=== PATIENT | male | born 1955 | race Caucasian/White ===

== ENCOUNTER 2017-04-03 13:01 | Outpatient (CLI) | payer OTHER | END 2017-04-03 13:02 | disposition home or self-care (01) | LOC: SC 13:01 | PROVIDERS: ATTEND Internal Medicine Pulmonary Disease | DX: G47.33 Obstructive sleep apnea (adult) (pediatric) (principal) | CPT/HCPCS: 99203; 99212 ==

== ENCOUNTER 2017-10-16 14:43 | Outpatient (CLI) | payer OTHER | END 2017-10-16 14:44 | disposition home or self-care (01) | LOC: SC 14:43 | PROVIDERS: ATTEND Nurse Practitioner Family | DX: G47.33 Obstructive sleep apnea (adult) (pediatric) (principal) | CPT/HCPCS: 99212; 99214 ==

== ENCOUNTER 2018-04-28 09:07 | Outpatient (CLI) | payer OTHER | END 2018-04-28 09:08 | disposition home or self-care (01) | LOC: RT 09:07 | PROVIDERS: ATTEND Internal Medicine | DX: J44.9 Chronic obstructive pulmonary disease, unspecified (principal) ==

== ENCOUNTER 2018-08-30 17:27 | Outpatient (CLI) | payer OTHER ==
--- NOTE | 2018-08-31 11:40 | MRI Report ---
Reason: PAIN IN UNSPECIFIED SHOULDER Procedure Date: 08/30/2018 Accession Number: [id number] / [id number] Procedure: MRI - Shoulder RT W/O CPT Code: FULL RESULT: EXAM: RIGHT SHOULDER MRI WITHOUT CONTRAST EXAM DATE: 08/30/2018 05:53 PM. CLINICAL HISTORY: Right shoulder pain and limited range of motion after fall. COMPARISON: None. TECHNIQUE: Multiplanar, multisequence T1-weighted and fluid-sensitive sequences of the shoulder without contrast. Other: None. FINDINGS: Acromioclavicular Region: The acromion is type II. Moderate effusion and borderline widening at the acromioclavicular joint. The coracoacromial and coracoclavicular ligaments are intact. Small amount of fluid at the subacromial subdeltoid bursa. Glenohumeral Region: No subluxation. Small to moderate sized joint effusion. No loose bodies. Grade II chondromalacia of the humeral head and glenoid. Bone Marrow: Small marginal osteophytes at the humeral head. No acute fracture or bone lesions. Labrum: The labrum is unremarkable on this nonarthrographic study. Musculature/Rotator Cuff: There is ill-defined, approximately 0.6 cm AP by 1 cm proximal to distal, full-thickness, partial width tear at the anterior distal aspect of the supraspinatus tendon. There is an approximately 5 x 4 mm, ill-defined, low to moderate grade partial thickness articular surface tear at the posterior aspect of the supraspinatus tendon. There is infraspinatus tendinosis. Teres minor tendon is intact. High-grade partial-thickness articular surface tear of the subscapularis tendon. There is a small, approximately 3.7 x 1.7 x 2 cm lipoma within the posterior aspect of the deltoid muscle. Biceps Tendon: The long head biceps tendon is dislocated medially from the bicipital groove. There is tendinosis at the proximal aspect of the long head biceps tendon. Other: The subcutaneous tissues are unremarkable. IMPRESSION: 1. Ill-defined full-thickness, partial width tear at the anterior distal aspect of the supraspinatus tendon and ill-defined low to moderate grade partial thickness articular surface tear at the posterior aspect of the supraspinatus tendon. Infraspinatus tendinosis. High-grade partial thickness articular surface tear of the subscapularis tendon. 2. Simple lipoma within the posterior aspect of the deltoid muscle. 3. Medial dislocation of the long head biceps tendon which is due to the subscapularis tendon tear and tears of the coracohumeral and superior glenohumeral ligaments. There is also proximal long head biceps tendinosis. 4. Moderate-sized effusion and borderline widening at the acromioclavicular joint. 5. Small to moderate sized glenohumeral joint effusion. 6. Grade II chondromalacia at the glenohumeral joint. [facility] MUSCULOSKELETAL RADIOLOGY SECTION
== END 2018-08-30 17:28 | disposition home or self-care (01) ==
LOC: DI 17:27
PROVIDERS: ATTEND Physician Assistant
DX: S46.011A Strain of muscle(s) and tendon(s) of the rotator cuff of right shoulder, initial encounter (principal); D17.9 Benign lipomatous neoplasm, unspecified; M67.88 Other specified disorders of synovium and tendon, other site; M25.411 Effusion, right shoulder; M94.211 Chondromalacia, right shoulder

== ENCOUNTER 2018-10-19 13:14 | Outpatient (CLI) | payer OTHER ==
[2018-10-19 13:28] LABS: BASOPHILS # (AUTO) 0.1 10^3/uL (0.0-0.1); BASOPHILS % (AUTO) 0.8 %; EOSINOPHILS # (AUTO) 0.4 10^3/uL (0.0-0.7); EOSINOPHILS % (AUTO) 4.6 %; HGB - HEMOGLOBIN 13.5 g/dL (14.0-18.0); LYMPHOCYTES # (AUTO) 1.5 10^3/uL (1.5-3.5); MEAN CORPUSCULAR HEMOGLOBIN 32.6 pg (27.0-31.0); MEAN CORPUSCULAR HGB CONC 33.9 g/dL (32.0-36.0); MEAN CORPUSCULAR VOLUME 96.2 fL (80.0-94.0); MEAN PLATELET VOLUME 8.9 fL (7.4-11.4); MONOCYTES # (AUTO) 0.8 10^3/uL (0.0-1.0); MONOCYTES % (AUTO) 10.5 %; NEUTROPHILS # (AUTO) 4.9 10^3/uL (1.5-6.6); NEUTROPHILS % (AUTO) 64.1 %; PLT - PLATELET COUNT 161 10^3/uL (130-450); RED BLOOD COUNT 4.13 10^6/uL (4.70-6.10); WHITE BLOOD COUNT 7.7 x10^3/uL (4.8-10.8)
[2018-10-19 13:38] LABS: CALCIUM 9.6 mg/dL (8.5-10.3); CREATININE 1.1 mg/dL (0.6-1.2)
== END 2018-10-19 13:15 | disposition home or self-care (01) ==
LOC: LAB 13:14
PROVIDERS: ATTEND Registered Nurse
DX: Z01.812 Encounter for preprocedural laboratory examination (principal); E11.9 Type 2 diabetes mellitus without complications; Z86.79 Personal history of other diseases of the circulatory system
CPT/HCPCS: 36415; 80048; 85025

== ENCOUNTER 2018-10-26 05:58 | Day surgery (SDC) | payer OTHER ==
[2018-10-26] MEDS ORDERED: cefTRIAXone 2 GM VIAL ONE (06:12)
[2018-10-26] MEDS ORDERED: LACTATED RINGERS 1,000 ML IV ONE ×2 (06:40→08:47)
--- NOTE | 2018-10-26 06:54 | ANESTHESIA ---
Pre-Anesthesia VS, & Labs - Diagnosis R Rotator cuff tear, biceps tendon dislocation. - Procedure R shoulder scope with RCR, biceps tenodesis Vital Signs: Temp Pulse Resp BP Pulse Ox 36.1 C L 60 18 150/86 H 96 10/26/18 06:24 10/26/18 06:24 10/26/18 06:24 10/26/18 06:24 10/26/18 06:24 Height 5 ft 11 in Weight (kg) 117.93 kg - NPO >8 hours - Lab Results Current Lab Results: Laboratory Tests 10/26/18 06:34: POC Whole Bld Glucose 147 H Lab results reviewed: Yes Home Medications and Allergies Home Medications: Ambulatory Orders Aspirin [Adult Low Dose Aspirin EC] 81 mg PO DAILY 10/19/18 Losartan/Hydrochlorothiazide [Losartan-Hctz 100-25 mg Tab] 1 each PO DAILY 10/19/18 Melatonin 5 mg PO QPM 10/19/18 Naproxen 250 mg PO BID 10/19/18 Omeprazole 20 mg PO QPM 10/19/18 Topiramate [Topamax] 25 mg PO QPM 10/19/18 Atorvastatin Calcium 20 mg PO QPM 01/24/14 Carvedilol 25 mg PO BID 01/24/14 Glipizide [Glipizide ER] 10 mg PO BID 01/24/14 Nifedipine [Nifedipine ER] 30 mg PO DAILY 01/24/14 Prazosin HCl 5 mg PO QPM 01/24/14 Sertraline [Zoloft] 100 mg PO DAILY 01/24/14 metFORMIN [Glucophage] 1,000 mg PO BID 01/24/14 Aspirin [Adult Low Dose Aspirin EC] 81 mg PO DAILY 10/19/18 Losartan/Hydrochlorothiazide [Losartan-Hctz 100-25 mg Tab] 1 each PO DAILY 10/19/18 Melatonin 5 mg PO QPM 10/19/18 Naproxen 250 mg PO BID 10/19/18 Omeprazole 20 mg PO QPM 10/19/18 Topiramate [Topamax] 25 mg PO QPM 10/19/18 Allergies/Adverse Reactions: Allergies Allergy/AdvReac Type Severity Reaction Status Date / Time morphine Allergy Respiratory Verified 10/19/18 13:26 Anes History & Medical History - Anesthetic History Anesthesia Complications: reports: No previous complications Family history of Anesthesia Complications: Denies Family history of Malignant Hyperthermia: Denies - Medical History Cardiovascular: reports: Hypertension, Other Pulmonary: reports: Sleep apnea, CPAP use Gastrointestinal: reports: GERD Urinary: reports: None Musculoskeletal: reports: Chronic back pain Endocrine/Autoimmune: reports: Type 2 diabetes Skin: reports: None Smoking Status: Never smoker - Surgical History General: Colonoscopy Cardiothoracic: Coronary stent Orthopedic: Arthroscopic surgery Results - EKG Results EKG Comparison: Reviewed EKG (R BBB) Exam General: Alert, Oriented x3, Cooperative Dental: WNL Mouth Openin Fingerbreadth Neck Mobility: Normal Mallampati classification: I Thyromental Distance: 4-6 cm Respiratory: Lungs clear, Normal breath sounds, No respiratory distress Cardiovascular: Regular rate Neurological: Normal speech Mental/Cognitive Status: Alert/Oriented X3 Cognitive Status: Within normal limits Plan Anesthesia Type: General, Interscalene Block Regional Block: Per Surgeon's request for Post Op pain control Consent for Procedure(s) Verified and Reviewed: Yes Code Status: Attempt Resuscitation ASA classification: 3-Severe systemic disease Is this case an emergency?: No
[2018-10-26] MEDS ORDERED: BUPIVACAINE 0.25% PF 30 ML VIAL ONE (07:36)
[2018-10-26] MEDS ORDERED: BUPIVACAINE 0.5% PF 10 ML VIAL ONE (07:36)
[2018-10-26] MEDS ORDERED: EPINEPHrine 1 MG/ML AMP ONE ×2 (07:37→07:42)
[2018-10-26] MEDS ORDERED: ONDANSETRON 4 MG/2 ML VIAL IVP ONE (08:41)
[2018-10-26] MEDS ORDERED: PHENYLEPHRINE 50 MG/5 ML VIAL IV ONE (08:41)
[2018-10-26] MEDS ORDERED: ePHEDrine 50 MG/ML VIAL IVP ONE (08:41)
[2018-10-26] MEDS ORDERED: ACETAMINOPHEN 1,000 MG/100 ML 100 ML IV ONE (08:41)
[2018-10-26] MEDS ORDERED: PROPOFOL 200 MG/20 ML VIAL IVP ONE (08:41)
[2018-10-26] MEDS ORDERED: fentaNYL 100 MCG/2 ML VIAL IVP ONE (08:41)
[2018-10-26] MEDS ORDERED: ROCURONIUM 50 MG/5 ML VIAL IVP ONE (08:41)
[2018-10-26] MEDS ORDERED: MIDAZOLAM 2 MG/2 ML VIAL IVP ONE (08:41)
[2018-10-26] MEDS ORDERED: KETOROLAC 30 MG/ML VIAL IVP ONE (08:41)
[2018-10-26] MEDS ORDERED: LIDOCAINE-MPF 2% 5 ML VIAL IM ONE (08:41)
[2018-10-26] MEDS ORDERED: GLYCOPYRROLATE 1 MG/5 ML VIAL IVP ONE (08:41)
[2018-10-26] MEDS ORDERED: ONDANSETRON 4 MG/2 ML VIAL IVP PRN (16:00)
[2018-10-26] MEDS ORDERED: oxyCODONE 5 MG TABLET PO PRN (16:00)
--- NOTE | 2018-10-26 16:23 | OPERATIVE REPORT ---
Operative Report - Other Other Information/Narrative: Date of Surgery: 26 Oct 2018 Pre-Op Diagnosis: Right shoulder subscapularis tear, supraspinatus tear, biceps tendon dislocation Procedure: Right shoulder arthroscopy with subscapularis repair. Mini open supraspinatus repair. Open biceps tenodesis Postop Diagnosis: Same as above Primary Surgeon: Jovi Fowler Secondary Surgeon: Hank OCASIO Complications: None EBL: 100 IMPLANTS: Arthrex corkscrew x4. Arthrex swivel lock x3 Arthrex fiber tack x1 POSTOPERATIVE PLAN: 0-2 weeks-Sling at all times. Pendulum exercises 5 times per day. 2-6 weeks-Passive range of motion. Forward flexion to 120 degrees, abduction to 70 degrees but must be in an internally rotated position. External rotation to neutral to protect the subscapularis repair 6-12 weeks-Passive ROM. ER 30 degrees from weeks 6-8, 60 degrees from weeks 8- 10. FF unlimited. Abduction to 90 degrees weeks 6-8, 120 degrees weeks 8-10, 150 degrees weeks 10-12 12 weeks - unlimited active and passive ROM 16 weeks and beyond-begin strengthening. EXAMINATION UNDER ANESTHESIA: ROM: Forward flexion to 160, abduction to 150, external rotation to 60 Anterior load and shift: Stable Posterior load and shift: Stable Inferior sulcus: Stable ARTHROSCOPIC FINDINGS: Rotator interval: Tear seen Biceps tendon & SLAP: Dislocated. Small SLAP tear Subscapularis: Tear of the upper two thirds with retraction to the glenoid rim Rotator Cuff: Full-thickness tear of supraspinatus with retraction to the glenoid rim HAGL: Normal Labrum: Normal for age Glenoid Cartilage: Grade 1 and grade 2 changes Humeral Head Cartilage: Grade 1 changes INDICATION FOR SURGERY: 63-year-old male fell approximately 6 months ago and has had progressive significant weakness and pain of his right arm since that time. He has failed physical therapy and had full-thickness tears with biceps dislocation on his imaging. His examination was consistent with this.. Nonoperative managment failed to resolve symptoms. The risks, benefits, and alternatives were discussed. Risks included pain, bleeding, infection, damage to nearby structures, lack of symptom relief, implant complications, stiffness, need for further surgeries, DVT, PE, stroke, and even . The patient signed a written consent form. PROCEDURE IN DETAIL: The patient was met in the preoperative holding on the day of the procedure. Operative extremity was signed. Consent was verified. The patient desired to proceed. Regional anesthesia was obtained in the preoperative area. The patient was brought to the operating room and surrendered to anesthesia. Once general anesthesia was obtained the patient was placed in the beach chair position. A soft kidney pad was placed. The head was secured with the neck in a neutral position. The shoulder and arm were prepped and draped in the standard fashion. A surgical timeout was held to confirm the patient identity, procedure, procedure, laterality, allergies, images, and antibiotics. All were in agreement we proceeded. A standard diagnostic arthroscopy was performed utilizing posterior and anterosuperior portals. The anterior portal was created under direct visualization and localized with a spinal needle. The 7 mm cannula was placed anteriorly. The findings of the diagnostic arthroscopy can be found above. Identified a full thickness subscapularis tear with retraction. I placed an anterolateral portal site for working. I used the shaver and the radiofrequency ablation wand to clear the rotator interval and perform a 3 sided release of the subscapularis. I placed a single fiber tape into the tendon for retraction and countertraction during my release. Identified the backside of the coracoid and skeletonized it. He had adequate space and I did not perform a coricoplasty. I left the conjoined tendon attached. The comma tissue was identified and left intact for reference and to aid in the supraspinatus reduction. I then removed my instruments into the subacromial space and performed a subacromial decompression with a shaver and a wand. A full-thickness supraspinatus tear was identified and I used a shaver to debride the unstable portions of it and better understand the pathology. Once the tear was completely identified and released I then moved back down into the joint to fix the subscapularis. I prepared the bony bed using a rasp and the shaver and bur mode. I placed an inferior and more superior anchor just on the border of the articular margin. This was done percutaneously. I then passed sutures using a scorpion into the inferior portion of the subscap in a horizontal mattress fashion. I then placed 2 additional horizontal mattress sutures in the superior upper border area. During this process 1 of the sutures became unloaded. I then tied inferiorly in the inferior sutures unfortunately broke. The superior suture reduced the tendon nicely and fixed it well into the anatomic position I then added an additional 2 mm fiber tape in a horizontal mattress fashion. I then placed a lateral row incorporating all 4 sutures. This was found to fix the subscapularis very nicely and it was stable to rotation. I then went back into the subacromial space and reassessed the supraspinatus tear. I felt as I understood it very well. I then moved to the open portion of the case. I extended my anterolateral portal site to 5 cm down from the acromial edge. I then bluntly dissected through the deltoid and used a Derra retractor in the subacromial space. Additional bursa was excised. 2 Gelpi's were placed for retraction. I then placed a medial row at man's angle just off the articular margin with 2 corkscrews and past 4 horizontal mattress sutures sequentially from posterior to anterior ensuring to get all layers of the tendon and burying the scorpion while using a traction stitch to pull the tendon more laterally. I then tied those knots and found there to be an excellent reduction. I then took one suture limb from each not and placed a lateral row with 2 swivel locks. This compressed the supraspinatus very nicely. It was stable to rotation and I took it through a range of motion. MINI OPEN BICEPS TENODESIS: A 5 cm incision was made near the axillary fold centered over the pectoralis major tendon. Electrocautery was used to obtain hemostasis. The fascia was opened with dissection scissors. Blunt digital dissection was used to identify the intertubercular groove just under the pectoralis major tendon. The long head of the biceps tendon was visualized within this interval. The short head of the biceps was retracted with my finger and the right angle was used to deliver the tendon of the long head of the biceps out of the wound. A saldivar elevator was then used to debride all synovial tissue from the intertubercular groove. A fibertack was placed high within the groove. Both limbs of the fibertack were pulled on and it was well fixed. I then whipstitched the biceps tendon starting 2 cm proximal to the musculotendinous junction down to the musculotendinous junction and back up to the same 2 cm location with a single limb of the suture tack. The other suture was placed once through the tendon at the 2 cm location. I then cut all excess tendon off. The suture limb that was passed the single time was then pulled on and this reduced the tendon nicely into the groove. The elbow was fully straightened and there was no excess tension on the repair site. I then tied 7 reverse half hitches alternating to secure the tendon in its place. The wound was then irrigated copiously. The portal sites were then closed with 3-0 nylon, interrupted. The incisions for open procedures were closed with 2-0 Vicryl in the dermis and interrupted nylon or a running 3-0 Monocryl in the skin. Mastisol and Steri-Strips were applied. A sterile dressing and a sling was applied. The patient was awakened and transferred to the recovery room.
[2018-10-26] MEDS ORDERED: oxyCODONE 5 MG TABLET ONE (17:07)
[2018-10-26 17:15] VITALS: BP 156/84
== END 2018-10-26 05:59 | disposition home or self-care (01) ==
LOC: SDS 05:58
PROVIDERS: ATTEND Orthopaedic Surgery
PROC: 0RNJ4ZZ Release Right Shoulder Joint, Percutaneous Endoscopic Approach (ICD-10-PCS; 2018-10-26)
PROC: 0LS10ZZ Reposition Right Shoulder Tendon, Open Approach (ICD-10-PCS; 2018-10-26)
PROC: 0LM10ZZ Reattachment of Right Shoulder Tendon, Open Approach (ICD-10-PCS; principal; 2018-10-26 07:30)
PROC: 0LM14ZZ Reattachment of Right Shoulder Tendon, Percutaneous Endoscopic Approach (ICD-10-PCS; 2018-10-26 07:30)
DX: S46.011A Strain of muscle(s) and tendon(s) of the rotator cuff of right shoulder, initial encounter (principal); S46.111A Strain of muscle, fascia and tendon of long head of biceps, right arm, initial encounter; S43.431A Superior glenoid labrum lesion of right shoulder, initial encounter; M19.011 Primary osteoarthritis, right shoulder; R22.0 Localized swelling, mass and lump, head; J44.9 Chronic obstructive pulmonary disease, unspecified; I25.10 Atherosclerotic heart disease of native coronary artery without angina pectoris; E11.9 Type 2 diabetes mellitus without complications; I10 Essential (primary) hypertension; E66.9 Obesity, unspecified; G47.33 Obstructive sleep apnea (adult) (pediatric); I45.10 Unspecified right bundle-branch block; Z86.19 Personal history of other infectious and parasitic diseases; Z88.5 Allergy status to narcotic agent; Z79.82 Long term (current) use of aspirin; Z79.899 Other long term (current) drug therapy; Z79.84 Long term (current) use of oral hypoglycemic drugs
CPT/HCPCS: 23410; 23430; 29827; A9270; C1713; J0131; J7120

== ENCOUNTER 2018-10-27 04:12 | Emergency (ER) | payer OTHER ==
--- NOTE | 2018-10-27 04:17 | ED Physician Documentation ---
PD HPI MALE - Stated complaint Stated Complaint: UNABLE TO URINATE/POST OP - History obtained from History obtained from: Patient, Family - History of Present Illness Timing - onset: Today (He had shoulder surgery this prior day, and had di fficulty urinating afterward. Had in and out pierre done post-op and discharged home, per . He states he has not been able to urinate since then. Feeling of bladder fullness and so here for evaluation.) Timing - duration: Hours (about 12 hours without urination) Timing - details: Gradual onset Associated symptoms: Unable to urinate, Scrotal swelling Similar symptoms before: Has not had sx before Recently seen: Surgery (yesterday - shoulder surgery, which took several hours, per patient.) Review of Systems Constitutional: denies: Fever GI: denies: Nausea, Vomiting Musculoskeletal: denies: Back pain PD PAST MEDICAL HISTORY - Past Medical History Cardiovascular: Hypertension, High cholesterol, Coronary artery disease, Other Respiratory: COPD, Sleep apnea, CPAP use Endocrine/Autoimmune: Type 2 diabetes GI: GERD : None HEENT: Chronic vision loss, Chronic hearing loss Psych: Depression, Panic attacks, Post traumatic stress disorder Musculoskeletal: Osteoarthritis, Chronic back pain Derm: None - Past Surgical History Past Surgical History: Yes General: Colonoscopy Ortho: Arthroscopic surgery, Spine surgery - Present Medications Home Medications: Ambulatory Orders Medication Instructions Recorded Confirmed Atorvastatin Calcium 20 mg PO QPM 01/24/14 10/26/18 Carvedilol 25 mg PO BID 01/24/14 10/26/18 Glipizide [Glipizide ER] 10 mg PO BID 01/24/14 10/26/18 Nifedipine [Nifedipine ER] 30 mg PO DAILY 01/24/14 10/26/18 Prazosin HCl 5 mg PO QPM 01/24/14 10/26/18 Sertraline [Zoloft] 100 mg PO DAILY 01/24/14 10/26/18 metFORMIN [Glucophage] 1,000 mg PO BID 01/24/14 10/26/18 Aspirin [Adult Low Dose Aspirin EC] 81 mg PO DAILY 10/19/18 10/26/18 Losartan/Hydrochlorothiazide 1 each PO DAILY 10/19/18 10/26/18 [Losartan-Hctz 100-25 mg Tab] Melatonin 5 mg PO QPM 10/19/18 10/26/18 Naproxen 250 mg PO BID 10/19/18 10/19/18 Omeprazole 20 mg PO QPM 10/19/18 10/26/18 Topiramate [Topamax] 25 mg PO QPM 10/19/18 10/26/18 - Allergies Allergies/Adverse Reactions: Allergies Allergy/AdvReac Type Severity Reaction Status Date / Time morphine Allergy Respiratory Verified 10/27/18 04:23 - Social History Does the pt smoke?: No Smoking Status: Never smoker Does the pt have substance abuse?: No - Immunizations Immunizations are current?: Yes - POLST Patient has POLST: No PD ED PE NORMAL - Vitals Vital signs reviewed: Yes - General General: Alert and oriented X 3, Well developed/nourished, Other (seems uncomfortable due to bladder fullness) - Cardiac Cardiac: RRR - Respiratory Respiratory: Clear bilaterally - Abdomen Abdomen: Other (fullness with some tenderness in suprapubic area, without guarding. ) - Back Back: No CVA TTP - Derm Derm: Normal color, Warm and dry Results - Vitals Vitals: Vital Signs - 24 hr 10/27/18 04:18 Temperature 36.7 C Heart Rate 101 H Respiratory 17 Rate Blood Pressure 148/89 H O2 Saturation 94 Oxygen O2 Source Room air PD MEDICAL DECISION MAKING - ED course Complexity details: considered differential (seems effect of anesth or of pain meds. Will place pierre and leave for 1-2 days for effect to dissipate. ), d/w patient Departure - Departure Disposition: 01 Home, Self Care Clinical Impression: Postoperative urinary retention Condition: Stable Record reviewed to determine appropriate education?: Yes Instructions: ED Catheter Care Pierre Follow-Up: DEVIN LOMBARDI MD [Primary Care Provider] - Jovi Fowler MD [Provider Admit Priv/Credential] - Comments: Leave the Pierre catheter in for couple of days. Follow-up with your surgeon on Monday for reassessment and presumed removal. Alternatively you can return to the ER and at 2 to 3 days for removal and see if you are able to urinate at that point after the effect of anesthesia and the postoperative timeframe has dissipated.
[2018-10-27 04:20] VITALS: BP 148/89
[2018-10-27] MEDS ORDERED: LIDOCAINE 2% URO-JET 5 ML SYRINGE UR STA (04:25)
== END 2018-10-27 05:14 | disposition home or self-care (01) ==
LOC: ED 04:12
DX: N99.89 Other postprocedural complications and disorders of genitourinary system (principal); R33.8 Other retention of urine; Y83.8 Other surgical procedures as the cause of abnormal reaction of the patient, or of later complication, without mention of misadventure at the time of the procedure; I10 Essential (primary) hypertension; E78.00 Pure hypercholesterolemia, unspecified; I25.10 Atherosclerotic heart disease of native coronary artery without angina pectoris; J44.9 Chronic obstructive pulmonary disease, unspecified; G47.30 Sleep apnea, unspecified; E11.9 Type 2 diabetes mellitus without complications; H54.7 Unspecified visual loss; H91.90 Unspecified hearing loss, unspecified ear; F32.9 Major depressive disorder, single episode, unspecified; F41.0 Panic disorder [episodic paroxysmal anxiety]; F43.10 Post-traumatic stress disorder, unspecified; G89.29 Other chronic pain; M54.9 Dorsalgia, unspecified; M19.90 Unspecified osteoarthritis, unspecified site; Z79.84 Long term (current) use of oral hypoglycemic drugs; Z79.82 Long term (current) use of aspirin
CPT/HCPCS: 51702; 99283

== ENCOUNTER 2018-10-28 08:46 | Emergency (ER) | payer OTHER ==
[2018-10-28 08:54] VITALS: BP 146/64
[2018-10-28] MEDS ORDERED: FUROSEMIDE 20 MG TABLET PO STA (09:07)
--- NOTE | 2018-10-28 09:33 | ED Physician Documentation ---
History of Present Illness - Stated complaint Stated Complaint: CATH COMPLICATIONS - Chief complaint Chief Complaint: Abd Pain - History obtained from History obtained from: Patient - History of Present Illness Timing: Today Pain level max: 0 Pain level now: 0 Improved by: nothing Worsened by: nothing - Additonal information Additional information: 63-year-old male presents to the emergency department with lower extremities as well as his scrotum. Had right shoulder surgery 3 days ago, seen here yesterday and had a catheter placed. Today feels like it is not draining as much. Review of Systems Constitutional: denies: Fever, Chills Skin: denies: Rash Musculoskeletal: denies: Neck pain, Back pain Neurologic: denies: Headache PD PAST MEDICAL HISTORY - Past Medical History Cardiovascular: Hypertension, High cholesterol, Coronary artery disease, Other Respiratory: COPD, Sleep apnea, CPAP use Neuro: None Endocrine/Autoimmune: Type 2 diabetes GI: GERD : None HEENT: Chronic vision loss, Chronic hearing loss Psych: Depression, Panic attacks, Post traumatic stress disorder Musculoskeletal: Osteoarthritis, Chronic back pain Derm: None - Past Surgical History Past Surgical History: Yes General: Colonoscopy Ortho: Arthroscopic surgery, Spine surgery - Present Medications Home Medications: Ambulatory Orders Medication Instructions Recorded Confirmed Atorvastatin Calcium 20 mg PO QPM 01/24/14 10/26/18 Carvedilol 25 mg PO BID 01/24/14 10/26/18 Glipizide [Glipizide ER] 10 mg PO BID 01/24/14 10/26/18 Nifedipine [Nifedipine ER] 30 mg PO DAILY 01/24/14 10/26/18 Prazosin HCl 5 mg PO QPM 01/24/14 10/26/18 Sertraline [Zoloft] 100 mg PO DAILY 01/24/14 10/26/18 metFORMIN [Glucophage] 1,000 mg PO BID 01/24/14 10/26/18 Aspirin [Adult Low Dose Aspirin EC] 81 mg PO DAILY 10/19/18 10/26/18 Losartan/Hydrochlorothiazide 1 each PO DAILY 10/19/18 10/26/18 [Losartan-Hctz 100-25 mg Tab] Melatonin 5 mg PO QPM 10/19/18 10/26/18 Naproxen 250 mg PO BID 10/19/18 10/19/18 Omeprazole 20 mg PO QPM 10/19/18 10/26/18 Topiramate [Topamax] 25 mg PO QPM 10/19/18 10/26/18 Furosemide [Lasix] 20 mg PO DAILY #5 tablet 10/28/18 - Allergies Allergies/Adverse Reactions: Allergies Allergy/AdvReac Type Severity Reaction Status Date / Time morphine Allergy Respiratory Verified 10/28/18 08:54 - Social History Does the pt smoke?: No Smoking Status: Never smoker Does the pt have substance abuse?: No - Immunizations Immunizations are current?: Yes - POLST Patient has POLST: No PD ED PE NORMAL - Vitals Vital signs reviewed: Yes - General General: Alert and oriented X 3, No acute distress - HEENT HEENT: Moist mucous membranes - Cardiac Cardiac: RRR - Respiratory Respiratory: No respiratory distress, Clear bilaterally - Abdomen Abdomen: Soft, Non tender, Non distended - Derm Derm: Warm and dry - Extremities Extremities: Other (2+ BLE pitting edema, swelling to scrotum as well) - Neuro Neuro: Alert and oriented X 3 - Psych Psych: Normal mood, Normal affect Results - Vitals Vitals: Vital Signs - 24 hr 10/28/18 08:52 Temperature 36.5 C Heart Rate 87 Respiratory 18 Rate Blood Pressure 146/64 H O2 Saturation 96 Oxygen O2 Source Room air PD MEDICAL DECISION MAKING - ED course Complexity details: reviewed old records, re-evaluated patient, considered differential, d/w patient ED course: Catheter is flushing and draining well. No issues there. Appears to have significant edema to the bilateral lower extremities. Likely third spacing from his recent surgery. Will prescribe a small amount of Lasix and see how he progresses over the next day or 2. No evidence of DVT. Patient is well- appearing, nontoxic. Afebrile. No hypoxia. No respiratory distress. Patient and family counseled regarding signs and symptoms for which I believe and urgent re-evaluation would be necessary. Patient with good understanding of and agreement to plan and is comfortable going home at this time This document was made in part using voice recognition software. While efforts are made to proofread this document, sound alike and grammatical errors may occur. Departure - Departure Disposition: 01 Home, Self Care Clinical Impression: Peripheral edema Condition: Good Instructions: ED Edema Legs Bilateral Follow-Up: DEVIN LOMBARDI MD [Primary Care Provider] - Within 3 Days Prescriptions: Furosemide [Lasix] 20 mg PO DAILY #5 tablet Comments: Use the lasix as prescribed. Return if you worsen. You should have your potassium rechecked in 3 days with your doctor.
== END 2018-10-28 09:50 | disposition home or self-care (01) ==
LOC: ED 08:46
DX: R60.0 Localized edema (principal); N50.89 Other specified disorders of the male genital organs; Z98.890 Other specified postprocedural states; I10 Essential (primary) hypertension; E11.9 Type 2 diabetes mellitus without complications; Z79.84 Long term (current) use of oral hypoglycemic drugs; Z79.82 Long term (current) use of aspirin
CPT/HCPCS: 99283; A9270

== ENCOUNTER 2019-05-25 08:43 | Outpatient (CLI) | payer OTHER ==
[~2019-05-25 08:43] MED LIST: ALBUTEROL NEB 2.5 MG/3 ML INH SCH
== END 2019-05-25 08:44 | disposition home or self-care (01) ==
LOC: RT 08:43
PROVIDERS: ATTEND Internal Medicine
DX: R05 Cough (principal); R06.02 Shortness of breath; Z77.118 Contact with and (suspected) exposure to other environmental pollution
CPT/HCPCS: 94727; 94729

== ENCOUNTER 2019-06-04 16:13 | Outpatient (CLI) | payer OTHER ==
--- NOTE | 2019-06-04 17:35 | SLEEP CARE CONSULTATION ---
Information from patient questionnaire entered by Dedra Bedoya. I have reviewed and concur with the information entered by Dedra Bedoya. This document represents the service I personally performed and the decisions made by me, Cecilia Chicas, RN, MSN, [employer]. History of Present Illness Previous diagnosis: Extremely Severe, Obstructive Sleep Apnea-Hypopnea Syndrome AHI: 93.6 Reason for follow up: annual (Last seen ) Equipment type: CPAP Equipment obtained from: [facility] (having difficulty getting supplies despite repeated attempts) Mask style: Full face Mask brand: Resmed Backup mask available: Yes Last cushion change: few months plus CPAP Compliance Data - Data Reviewed with Patient Average duration of nightly device use: 6.25 Compliance rate %: 96.7 (30 days)(66.7 -180 days) Current pressure setting (cmH2O): 15-18 Humidity settin Heated hose settin Average residual AHI: 3.2 Average large leak: 4 sec Subjective Missed days of use due to: reports: other (recovery from shoulder surgery) Patient concerns: reports: dry mouth, nose, throat (moderate dry mouth ). denies: aerophagia, mask discomfort, air blowing in eyes, mask leak noise, condensation in mask/hose, nasal congestion, epistaxis Observed to snore while using device: No Current pressure setting perceived as: comfortable On therapy, patient: reports: sleeping better, awakening more refreshed, being more awake and alert during the day, more rested overall. denies: drowsiness while driving Initial [place] Sleepiness Scale score: 16 Current [place] Sleepiness Scale score: 0 Allergies and Home Medications Known drug allergies: Yes (morphine) Home medication list reviewed: Yes (added gabapentin , stopped prazosin / no other changes from last visit 10/14) Review of Systems Review of systems same as previous: No (lightheaded and fell to floor this morning/ repair r rotator cuff/ pudenal ) Physical Exam Blood Pressure: 154/88 Cuff size: long Heart Rate: 80 O2 Saturation: 96 Height: 5 ft 11 in Weight: 267 lb Weight change since last visit: gained 13 pounds Body Mass Index: 37.2 BMI Classification: Obesity Class 2 Impression and Plan 1. Obstructive Sleep Apnea-Hypopnea Syndrome, extremely severe, with good treatment compliance and good apnea control. On CPAP therapy, the patient has better sleep quality and is more rested overall. For patient supply concerns. Patient was notified that another DME can be used. I will have my mental health coordinator inform of DME options. A DWO prescription will then be made. Patient advised to contact this office if further supply problems. Oral dryness can be reduced with increasing the CPAP humidity as shown on sample device and the heated hose can be increased if condensation. Printed instructions given with rationale written for changing settings. Patient has gained 13 pounds. Currently patients BMI is 37.2 obesity class. Obesity increases the risk of a pnea, CPAP pressure requirements and overall health risks especially cardiovascular and diabetes. Thus patient is advised to lose weight. Weight loss can be done with reducing portion size, refined foods and balancing content with vegetables, fruit and protein. A diet consultation can be helpful in achieving optimal weight loss goals. The BMI chart was reviewed. Patient encouraged to discuss their weight loss goals with their PCP and consider a referral to a increment manager. Symptoms to report for additional pressure adjustment discussed. Patient's apnea severity and rationale for treatment to reduce apnea, improve sleep quality and reduce cardiovascular and cerebrovascular events was reviewed. I also reviewed the benefit of consistent device use of CPAP for hypertension. Since patient has significant apnea in any position, if unable to use CPAP while ill or lack of electricity, he is advised to sleep with head of bed elevated 30- 40 degrees to reduce some apnea risk. 2. Lightheadedness with subsequent fall at home this morning. Denies blacking out , hitting head or any injury. Patient advised to follow up with PCP for further evaluation with rationale explained and agreed with plan. He would not let his spouse call his doctor after fall today as he has an appointment with PCP in morning. * Continue CPAP pressure at 15-18 cmH2O * transfer to new DME * Adjust humidity * Notify me if snoring with mask or feeling that the pressure is too much or too little * Attempt to lose weight * Call this office if any problems using CPAP * Follow up with PCP for further evaluation of lightheadedness and fall. * Return for follow up in 1 year , or sooner if concerns arise Time Spent with Patient (minutes): 32 I spent 100% of this visit face to face with the patient with greater than 50% of this was spent time counseling the patient and coordination of care.
[2019-06-04 17:36] VITALS: BP 154/88
== END 2019-06-04 16:14 | disposition home or self-care (01) ==
LOC: SC 16:13
PROVIDERS: ATTEND Nurse Practitioner Family
DX: G47.33 Obstructive sleep apnea (adult) (pediatric) (principal); E66.9 Obesity, unspecified; Z68.37 Body mass index [BMI] 37.0-37.9, adult; R42 Dizziness and giddiness
CPT/HCPCS: 99212; 99214

== ENCOUNTER 2019-12-13 08:58 | Outpatient (CLI) | payer OTHER ==
--- NOTE | 2019-12-13 15:17 | MRI Report ---
PROCEDURE: Knee LT W/O INDICATIONS: LT KNEE PAIN TECHNIQUE: Noncontrast sagittal PD fast spin echo and T2 fast spin echo with fat saturation, sagittal 3-D gradie nt sequence with fat saturation; coronal T1 spin echo and PD fast spin echo with fat saturation, and axial PD fast spin echo with fat saturation through the knee. COMPARISON: None. FINDINGS: Image quality: Excellent. Menisci: Complex oblique tear involving posterior horn of medial meniscus is seen extending to the echols perior articulating surface. There is no focal lateral meniscal tear. The meniscal root ligaments esme ear intact. Cruciate ligaments: The anterior and posterior cruciate ligaments appear intact. Medial structures: There is low to moderate grade MCL sprain particularly near its femoral insertion. The posterior oblique ligament, semimembranosus tendon insertions, and oblique popliteal ligament, and meniscocapsular junction appear intact. Visualized portions of the pes anserinus tendons appear normal. No abnormal bursal fluid. Lateral structures: The lateral collateral ligament, long and short heads of the biceps femoris tend on appear intact. The popliteus tendon appears normal; the popliteofibular ligament appears intact. The posterosuperior and anteroinferior popliteomeniscal fascicles appear intact. The arcuate and fa bellofibular ligaments appear intact, around the lateral inferior geniculate artery. Iliotibial band appears normal. Anterior structures: Soft tissue swelling and edema along anterior aspect of patella and patellar te ndon is seen. The quadriceps and patellar tendons appear intact. Patellar alignment is normal. No f emoral trochlear dysplasia or ventral trochlear prominence. No edema in the infrapatellar fat pad. Bones and cartilage: No bone marrow contusions or fractures. Mild to moderate tricompartmental osteo arthritis and low-grade chondromalacia is seen most prominent in the medial femoral tibial compartmen t. Joint space: There is small to moderate amount of joint fluid. No Deleon?s cyst. Normal appearing sy novial plicae are incidentally noted. IMPRESSION: 1. Complex oblique tear involving posterior horn of medial meniscus extending to superior articulatin g surface. No evidence of focal lateral meniscal tear. 2. Low to moderate grade MCL sprain/partial thickness tear. Anterior and posterior cruciate ligaments are intact. 3. 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 4. Soft tissue swelling along anterior aspect of patella and patellar tendon. Small to moderate amoun t of joint fluid, no gross loose body. Reviewed by: Sam Parrish MD on 12/13/2019 3:16 PM PDT Approved by: Sam Parrish MD on 12/13/2019 3:16 PM PDT Station ID: [id number]
== END 2019-12-13 08:59 | disposition home or self-care (01) ==
LOC: DI 08:58
PROVIDERS: ATTEND Internal Medicine
DX: S83.242A Other tear of medial meniscus, current injury, left knee, initial encounter (principal); S83.412A Sprain of medial collateral ligament of left knee, initial encounter; M17.12 Unilateral primary osteoarthritis, left knee; M94.262 Chondromalacia, left knee

== ENCOUNTER 2020-09-29 14:09 | Outpatient (CLI) | payer OTHER | END 2020-09-29 14:10 | disposition EMS.NT | LOC: EMS 14:09 | DX: R42 Dizziness and giddiness (principal) ==

== ENCOUNTER 2021-04-13 14:41 | Outpatient (CLI) | payer OTHER ==
[2021-04-13 16:03] VITALS: BP 146/96
--- NOTE | 2021-04-13 16:03 | SLEEP CARE CONSULTATION ---
Information from patient questionnaire entered by Aren Shaw MA. I have reviewed and concur with the information entered by Aren Shaw MA. This document represents the service I personally performed and the decisions made by , Vicki Trivedi ARNP. History of Present Illness Service Date and Time: 04/13/2021 1441 Previous diagnosis: Extremely Severe, Obstructive Sleep Apnea-Hypopnea Syndrome AHI: 93.6 Reason for follow up: annual (last seen 2019) Equipment type: CPAP Equipment obtained from: [employer] (getting supplies as needed) Mask style: Full face Backup mask available: Yes (other mask) Last cushion change: 2 weeks ago Prior sleep studies: Yes (AHI 93.6, EPI 4 and 16 initial ) Year and Where: 09/2017 [facility] additional information: MIGUEL SONG was diagnosed to have extremely severe, AHI 93.6, obstructive sleep apnea-hypopnea syndrome and returned today for CPAP therapy annual follow- up. CPAP Compliance Data - Data Reviewed with Patient Average duration of nightly device use: 7 hours 38 minutes Compliance rate %: 98.3 Current pressure setting (cmH2O): 15 -18 Humidity settin Heated hose settin Average residual AHI: 4.0 Average large leak: 0 Subjective Patient concerns: reports: air blowing in eyes, mask leak noise, dry mouth, nose, throat (dry throat; has moisturizing spray from dentis), other (headache). denies: aerophagia, mask discomfort, nasal congestion, epistaxis Observed to snore while using device: No Current pressure setting perceived as: comfortable On therapy, patient: reports: sleeping better, awakening more refreshed, being more awake and alert during the day, more rested overall. denies: drowsiness while driving Initial [place] Sleepiness Scale score: 16 (2017) Current [place] Sleepiness Scale score: 17 (2020) Allergies and Home Medications Home medication list reviewed: Yes (no changes) Review of Systems Review of systems same as previous: Yes (no changes) Physical Exam Vital signs obtained and entered by: ANISA Gonzalez Blood Pressure: 146/96 (left) Cuff size: wrist Heart Rate: 73 O2 Saturation: 96 (with mask) Height: 5 ft 11 in Weight: 230 lb (with boots) Weight change since last visit: is trying to loose weight. Body Mass Index: 32.1 BMI Classification: Obese Impression and Plan 1. Obstructive Sleep Apnea-Hypopnea Syndrome, extremely severe, with good treatment compliance and good apnea control. On CPAP therapy, the patient has better sleep quality and is more rested overall. Patient has a Dreamstation CPAP. I informed the patient that [employer] has a recall on several devices like the patients machine. Patient was encouraged to register their device online with [employer] for the recall to see if their device is affected. If their device is affected they should start a claim. Patient has seen black particles in his machine and the filters. Patient has not experienced any physical symptoms such as upper airway irritation, headache, skin or eye irritation, asthma, nausea/vomiting, difficulty breathing or chest pain. If patient is not able to sleep due to waking up choking, gasping for air or other respiratory distress that they may decide to continue using it until it is either replaced or repaired. Patient is not due to update their device, but they to have [employer] insurance who will update a recalled device. I will make a prescription to update his device and followup with him one month after he obtains his new device. Patient voiced understanding. Patient's apnea severity and rationale for treatment to reduce apnea, improve sleep quality and reduce cardiovascular and cerebrovascular events was reviewed. I also reviewed the benefit of consistent device use of CPAP for hypertension. Patient was encouraged to lose weight for their overall health and to reduce apneas. * Continue auto CPAP pressure at 15-18 cmH2O * Update device on Recall * Notify me if snoring with mask or feeling that the pressure is too much or too little * Attempt to lose weight * Call this office if any problems using CPAP * Return for follow up one month after obtaining new device, or sooner if concerns arise Counseling Topics: Spare mask, Weight loss health impact Visit Type: In Office Time Spent with Patient (minutes): 25 Provider Statement: I spent 100% of the Face to Face Visit with the patient with greater than 50% spent counseling the patient and coordination of care.
== END 2021-04-13 14:42 | disposition home or self-care (01) ==
LOC: SC 14:41
PROVIDERS: ATTEND Nurse Practitioner Family
DX: G47.33 Obstructive sleep apnea (adult) (pediatric) (principal); E66.9 Obesity, unspecified; Z68.32 Body mass index [BMI] 32.0-32.9, adult
CPT/HCPCS: 99212; 99213

== ENCOUNTER 2021-11-23 14:27 | Outpatient (CLI) | payer MEDICARE, OTHER ==
[2021-11-23 15:17] VITALS: BP 154/107
--- NOTE | 2021-11-23 15:17 | SLEEP CARE CONSULTATION ---
Information from patient questionnaire entered by Aren Shaw MA. I have reviewed and concur with the information entered by Aren Shaw MA. This document represents the service I personally performed and the decisions made by , Vicki Trivedi ARNP. History of Present Illness Service Date and Time: 11/23/2021 1427 Previous diagnosis: Extremely Severe, Obstructive Sleep Apnea-Hypopnea Syndrome AHI: 93.6 Reason for follow up: first compliance (RESMEDLUKAS 10/10/2021,), first compliance after device update Equipment type: CPAP Equipment obtained from: [employer] (getting supplies as needed) Mask style: Full face Backup mask available: Yes (old mask) Last cushion change: 90 days Prior sleep studies: Yes (AHI 93.6, EPI 4 and 16 initial ) Year and Where: 09/2017 [facility] additional information: MIGUEL SONG was diagnosed to have extremely severe, AHI 93.6, obstructive sleep apnea-hypopnea syndrome and returned today for CPAP therapy first compliance after updating device follow-up. Sleep Study - Results Prior sleep studies: Yes (AHI 93.6, EPI 4 and 16 initial ) Year and Where: 09/2017 [employer] CPAP Compliance Data - Data Reviewed with Patient Average duration of nightly device use: 7 hours 36 minutes Compliance rate %: 100 (10/23/2021-; 30 days) Current pressure setting (cmH2O): 15-18 Average residual AHI: 0.5 Central apnea: .1 Obstructive apnea: .0 Hypopnea: .3 Average large leak: .0 Subjective Patient concerns: reports: nasal congestion, dry mouth, nose, throat, other (HEADACHE). denies: aerophagia, mask discomfort, air blowing in eyes, mask leak noise, condensation in mask/hose, epistaxis Observed to snore while using device: No Current pressure setting perceived as: too low On therapy, patient: reports: sleeping better, awakening more refreshed, being more awake and alert during the day, more rested overall. denies: drowsiness while driving Initial [place] Sleepiness Scale score: 16 (2017) Current [place] Sleepiness Scale score: 20 (11/23/2021) Allergies and Home Medications Home medication list reviewed: Yes (no changes) Allergy and home medication list: Allergies morphine Allergy (Verified 10/28/18 08:54) Respiratory low heart rate Review of Systems Review of systems same as previous: Yes (no changes) Physical Exam Vital signs obtained and entered by: ANISA CORMIER Blood Pressure: 154/107 (RESP 18, PULSE 75, LEFT X 2 ) Cuff size: wrist Heart Rate: 79 O2 Saturation: 97 Height: 5 ft 11 in Weight: 231 lb (CLOTHES) Body Mass Index: 32.2 BMI Classification: Obese Impression and Plan 1. Obstructive Sleep Apnea-Hypopnea Syndrome, extremely severe, with excellent treatment compliance and excellent apnea control. On CPAP therapy, the patient has better sleep quality and is more rested overall. He states he can't sleep without it. He has not been getting supplies from his DME. I talked to him about needing a follow up after he got his new machine to continue to get supplies. I will update his prescription for supplies. He is also having issue with dry mouth, nasal congestion, headaches and his humidifier is running out early during the night. He also feels like the pressure is not as high since he has been using the new CPAP. His residual AHI is 0.5. I advised patient that I don't think the pressure needs increased. I will adjust down a little to reduce headaches. I will write for a machine service to check for issues with the humidifier and pressure. I will have the patient follow up in 1-2 months to see how he is doing with changes. Patient's apnea severity and rationale for treatment to reduce apnea, improve sleep quality and reduce cardiovascular and cerebrovascular events was reviewed. I also reviewed the benefit of consistent device use of CPAP for hypertension. Patient was encouraged to try to lose weight. His current BMI is 32.2. * Change auto CPAP pressure to 15-17 cmH2O * Notify me if snoring with mask or feeling that the pressure is too much or too little * Attempt to lose weight * Call this office if any problems using CPAP * Return for follow up in 1-2 months, or sooner if concerns arise Counseling Topics: Spare mask, Weight loss health impact Visit Type: In Office Time Spent with Patient (minutes): 23 Provider Statement: I spent 100% of the Face to Face Visit with the patient with greater than 50% spent counseling the patient and coordination of care.
== END 2021-11-23 14:28 | disposition home or self-care (01) ==
LOC: SC 14:27
PROVIDERS: ATTEND Nurse Practitioner Family
DX: G47.33 Obstructive sleep apnea (adult) (pediatric) (principal); E66.9 Obesity, unspecified; Z68.32 Body mass index [BMI] 32.0-32.9, adult
CPT/HCPCS: 99213; G0463; 99212

== ENCOUNTER 2023-02-14 10:09 | Outpatient (CLI) | payer MEDICARE, OTHER ==
--- NOTE | 2023-02-14 11:10 | Sleep Patient Instructions ---
Sleep Center Visit Summary - Patient Visit Information Reason for Visit: Annual visit for PAP therapy - Patient Instructions Additional Instructions: You will continue with CPAP therapy with pressure set at 15-17 cmH2O. A supply prescription will be updated with your DME. We encourage you to continue to try to lose weight. Please follow up with the sleep care office in 1 year. - Clinic Information Contact: [facility] [address] [place] [address] [email or web address] T: [phone]
--- NOTE | 2023-02-14 11:13 | SLEEP CARE CONSULTATION ---
Information from patient questionnaire entered by Tanvi Sotomayor. I have reviewed and concur with the information entered by Tanvi Sotomayor. This document represents the service I personally performed and the decisions made by me, Vicki Trivedi ARNP. History of Present Illness Service Date and Time: 02/14/2023 1009 Previous diagnosis: Extremely Severe, Obstructive Sleep Apnea-Hypopnea Syndrome AHI: 93.6 Reason for follow up: annual (LAST SEEN 12/2021) Equipment type: CPAP (RESMED 11, s/u 09/2021) Equipment obtained from: [employer] (getting supplies as needed) Mask style: Full face Mask brand: Resmed (Mirage Quattro, large cushion) Backup mask available: No (needs supplies) Last cushion change: last month Prior sleep studies: Yes (AHI 93.6, EPI 4 and 16 initial ) Year and Where: 09/2017 [facility] additional information: MIGUEL SONG was diagnosed to have extremely severe, AHI 93.6, obstructive sleep apnea-hypopnea syndrome and returned today for CPAP therapy annual follow- up. Sleep Study - Results Prior sleep studies: Yes (AHI 93.6, EPI 4 and 16 initial ) Year and Where: 09/2017 [facility] CPAP Compliance Data - Data Reviewed with Patient Average duration of nightly device use: 8 HRS 20 MIN Compliance rate %: 100 (08/14/22-02/09/23; 180/180 days used) Current pressure setting (cmH2O): 15-17 Average residual AHI: 0.7 Central apnea: 0.2 Obstructive apnea: 0 Hypopnea: 0.4 Average large leak: 0 l/min Subjective Patient concerns: reports: mask leak noise (top of mask/ at bridge near eyes; adjustment help), dry mouth, nose, throat (dry mouth). denies: aerophagia, mask discomfort, air blowing in eyes, condensation in mask/hose, nasal congestion, epistaxis Observed to snore while using device: No Current pressure setting perceived as: comfortable On therapy, patient: reports: sleeping better, more rested overall. denies: drowsiness while driving (does not drive long trips; drinks caffiene drinks for trip) Initial [place] Sleepiness Scale score: 16 (2018) Current [place] Sleepiness Scale score: 18 (he states his sleep medication) Allergies and Home Medications Known drug allergies: Yes (as listed) Drug allergies reviewed: Yes Home medication list reviewed: Yes (no changes) Allergy and home medication list: Allergies morphine Allergy (Verified 02/13/23 08:31) Respiratory low heart rate Home Medications Medication Instructions Recorded Confirmed Last Taken Type Atorvastatin Calcium 20 mg PO QPM 01/24/14 10/26/18 10/25/18 History Carvedilol 25 mg PO BID 01/24/14 10/26/18 10/26/18 History Glipizide [Glipizide ER] 10 mg PO BID 01/24/14 10/26/18 10/25/18 History NIFEdipine [Nifedipine ER] 30 mg PO DAILY 01/24/14 10/26/18 10/26/18 History Prazosin HCl 5 mg PO QPM 01/24/14 10/26/18 10/26/18 History Sertraline [Zoloft] 100 mg PO DAILY 01/24/14 10/26/18 10/25/18 History metFORMIN [Glucophage] 1,000 mg PO BID 01/24/14 10/26/18 10/25/18 History Aspirin [Adult Low Dose Aspirin EC] 81 mg PO DAILY 10/19/18 10/26/18 10/25/18 History Losartan/Hydrochlorothiazide 1 each PO DAILY 10/19/18 10/26/18 10/26/18 History [Losartan-Hctz 100-25 mg Tab] Melatonin 5 mg PO QPM 10/19/18 10/26/18 10/25/18 History Naproxen 250 mg PO BID 10/19/18 10/19/18 Unknown History Omeprazole 20 mg PO QPM 10/19/18 10/26/18 10/26/18 History Topiramate [Topamax] 25 mg PO QPM 10/19/18 10/26/18 10/25/18 History Furosemide [Lasix] 20 mg PO DAILY #5 tablet 10/28/18 Unknown Rx Review of Systems Review of systems same as previous: No (Loop in for fainting spells, none in last 8-9 months) Physical Exam Vital signs obtained and entered by: Vicki Buckley NP Blood Pressure: 144/85 Cuff size: wrist (right) Heart Rate: 70 O2 Saturation: 96 Height: 5 ft 11 in Weight: 234 lb Body Mass Index: 32.6 BMI Classification: Obese Impression and Plan 1. Obstructive Sleep Apnea-Hypopnea Syndrome, extremely severe, with good treatment compliance and good apnea control. On CPAP therapy, the patient has better sleep quality and is more rested overall. Patient has significant improvement of their sleep apnea and is satisfied with current CPAP therapy. Patient still has elevated daytime sleepiness but he has adequate therapy for his sleep apnea. I encouraged him to talk to his primary care for other causes of his daytime fatigue. He voiced understanding. He states he gets occasional dry mouth and mask leak noises but otherwise has no other issues with his mask. We will follow-up with him next year. Patient's apnea severity and rationale for treatment to reduce apnea, improve sleep quality and reduce cardiovascular and cerebrovascular events was reviewed. I also reviewed the benefit of consistent device use of CPAP for hypertension. 2. Obesity, unspecified. Currently patients BMI is 32.6. Obesity increases the risk of apnea, CPAP pressure requirements and overall health risks especially cardiovascular and diabetes. Thus patient is advised to lose weight. * Continue auto CPAP pressure at 15-17 cmH2O * Update supplies * Notify me if snoring with mask or feeling that the pressure is too much or too little * Attempt to lose weight * Call this office if any problems using CPAP * Return for follow up in 1 year, or sooner if concerns arise Counseling Topics: Spare mask, Weight loss health impact Prescriptions: Device supplies Visit Type: In Office Time Spent with Patient (minutes): 22 Provider Statement: I spent 100% of the Face to Face Visit with the patient with greater than 50% spent counseling the patient and coordination of care.
[2023-02-14 11:17] VITALS: BP 144/85; O2SAT 96
== END 2023-02-14 10:10 | disposition home or self-care (01) ==
LOC: SC 10:09
PROVIDERS: ATTEND Nurse Practitioner Family
DX: G47.33 Obstructive sleep apnea (adult) (pediatric) (principal); E66.9 Obesity, unspecified; Z68.32 Body mass index [BMI] 32.0-32.9, adult
CPT/HCPCS: 99213; G0463; 99212

== ENCOUNTER 2024-02-15 11:04 | Outpatient (CLI) | payer MEDICARE, OTHER ==
--- NOTE | 2024-02-15 11:33 | Sleep Patient Instructions ---
Sleep Center Visit Summary - Patient Visit Information Reason for Visit: Annual follow-up - Patient Instructions Additional Instructions: You will continue with CPAP therapy with pressure set at 15-17 cmH2O. A supply prescription will be updated with your DME supplier. We encourage you to continue to try to lose weight. Please follow up with the sleep care office in 1 year. - Clinic Information Contact: [facility] [address] [place] [address] [email or web address] T: [phone]
--- NOTE | 2024-02-15 11:35 | SLEEP CARE CONSULTATION ---
Information from patient questionnaire entered by Tanvi Sotomayor. I have reviewed and concur with the information entered by Tanvi Sotomayor. This document represents the service I personally performed and the decisions made by me, Vicki Trivedi ARNP. History of Present Illness Service Date and Time: 02/15/2024 1104 Previous diagnosis: Extremely Severe, Obstructive Sleep Apnea-Hypopnea Syndrome AHI: 93.6 Reason for follow up: annual (LAST SEEN 01/2023) Equipment type: CPAP (RESMED 11, s/u 09/2021) Equipment obtained from: [employer] (getting supplies as needed) Mask style: Full face Backup mask available: Yes Last cushion change: 2 weeks Prior sleep studies: Yes (AHI 93.6, EPI 4 and 16 initial ) Year and Where: 09/2017 [facility] additional information: MIGUEL SONG was diagnosed to have extremely severe, AHI 93.6, obstructive sleep apnea-hypopnea syndrome and returned today for CPAP therapy annual follow- up. Sleep Study - Results Prior sleep studies: Yes (AHI 93.6, EPI 4 and 16 initial ) Year and Where: 09/2017 [facility] Compliance Data - Data Reviewed with Patient Average duration of nightly device use: 8 HRS 56 MINS Compliance rate %: 99 (08/18/23-02/13/24; 180/180 days used) Current pressure setting (cmH2O): 15-17 Average residual AHI: 0.6 Central apnea: 0.2 Obstructive apnea: 0 Hypopnea: 0.3 Average large leak: 0 L/min Subjective Patient concerns: reports: mask leak noise, dry mouth, nose, throat (dry mouth). denies: aerophagia, mask discomfort, air blowing in eyes, condensation in mask/hose, nasal congestion, epistaxis Observed to snore while using device: No Current pressure setting perceived as: comfortable On therapy, patient: reports: sleeping better, awakening more refreshed, being more awake and alert during the day, more rested overall. denies: drowsiness while driving Initial [place] Sleepiness Scale score: 16 (2017) Current [place] Sleepiness Scale score: 10 (02/15/24) Allergies and Home Medications Known drug allergies: Yes (as listed) Drug allergies reviewed: Yes Home medication list reviewed: Yes (no changes) Allergy and home medication list: Allergies morphine Allergy (Verified 02/15/24 11:05) Respiratory low heart rate Review of Systems Review of systems same as previous: Yes (NO CHANGE) Physical Exam Vital signs obtained and entered by: TANVI Harding MA Blood Pressure: 149/88 (RIGHT ARM) Cuff size: regular Heart Rate: 71 O2 Saturation: 98 Height: 5 ft 11 in Weight: 224 lb 6.4 oz Weight change since last visit: 10 lb loss Body Mass Index: 31.3 BMI Classification: Obese Impression and Plan 1. Obstructive Sleep Apnea-Hypopnea Syndrome, extremely severe, with good treatment compliance and good apnea control. On CPAP therapy, the patient has better sleep quality and is more rested overall. Patient has significant improvement of their sleep apnea and is satisfied with current CPAP therapy. Patient denies problems with nasal congestion, epistaxis, skin irritation or aerophagia. Patient's apnea severity and rationale for treatment to reduce apnea, improve sleep quality and reduce cardiovascular and cerebrovascular events was reviewed. I also reviewed the benefit of consistent device use of CPAP for hypertension. 2. Obesity, unspecified. Currently patients BMI is 31.3. He has lost weight. Obesity increases the risk of apnea, CPAP pressure requirements and overall health risks especially cardiovascular and diabetes. Thus patient is advised to continue to try to lose weight. * Continue auto CPAP pressure at 15-17 cmH2O * Update supply prescription * Notify me if snoring with mask or feeling that the pressure is too much or too little * Attempt to lose weight * Call this office if any problems using CPAP * Return for follow up in 12 months, or sooner if concerns arise Counseling Topics: Spare mask, Weight loss health impact Prescriptions: Device supplies Follow up with Sleep Care in: 1 year Visit Type: In Office Time Spent with Patient (minutes): 12 Provider Statement: I spent 100% of the Face to Face Visit with the patient with greater than 50% spent counseling the patient and coordination of care.
[2024-02-15 11:40] VITALS: BP 149/88; O2SAT 98
== END 2024-02-15 11:05 | disposition home or self-care (01) ==
LOC: SC 11:04
PROVIDERS: ATTEND Nurse Practitioner Family
DX: G47.33 Obstructive sleep apnea (adult) (pediatric) (principal); E66.9 Obesity, unspecified; Z68.31 Body mass index [BMI] 31.0-31.9, adult
CPT/HCPCS: 99212; G0463